=== PATIENT | female | born 1960 | race Caucasian/White ===

== ENCOUNTER → 2020-03-11 15:14 | Outpatient (CLI) | payer BC, SELFPAY ==
--- NOTE | ~2020-03-11 | MM_ITS ---
EXAMINATION: MM screening shari BI w gary HISTORY: Screening mammogram TECHNIQUE: Craniocaudal and mediolateral oblique 3-D tomosynthesis images were obtained and synthetic 2-D images were generated. CAD analysis was submitted and interpreted. COMPARISON: 01/13/2016, 11/05/2014 bilateral digital screening mammogram examinations BREAST PARENCHYMAL COMPOSITION: There are scattered areas of fibroglandular density. FINDINGS: There is diminished size of both breasts consistent with interval bilateral breast reductio n surgery. Benign fat necrosis calcifications are noted on the right. There is no evidence of suspici ous mass, calcification, or architectural distortion to suggest malignancy in either breast. There persaud s been no suspicious interval change. IMPRESSION: 1. No mammographic evidence of malignancy. 2. Recommend routine screening mammography in one year. BI-RADS Category 2: Benign finding(s). ... Reviewed, dictated and finalized at location A.
== END ==
PROVIDERS: PCP Family Medicine; Visit Provider Family Medicine
DX: Z12.31 Encounter for screening mammogram for malignant neoplasm of breast (principal)
CPT/HCPCS: 77063; 77067

== ENCOUNTER 2021-08-28 10:07 | Outpatient (CLI) | payer BC, SELFPAY ==
--- NOTE | ~2021-08-28 | DEXA_ITS ---
Bone Density Report Name: RONAN SALINAS Age: 60 Sex: Female Ethnicity: White Date of : 1960 Indication: postmenopausal; screening for osteoporosis; hysterectomy; Referring Provider: Catherine Gupta Study: Bone densitometry was performed. Exam Date: August 28, 2021 Accession number: [id number] Bone Density: Region BMD T-score Z-score Classification AP Spine (L1-L4) 0.920 -1.2 0.3 Osteopenia Femoral Neck (Left) 0.812 -0.3 1.0 Normal Total Hip (Left) 1.113 1.4 2.4 Normal Femoral Neck (Right) 0.856 0.1 1.4 Normal Total Hip (Right) 1.017 0.6 1.6 Normal Total Hip Mean 1.065 1.0 2.0 Normal World Health Organization criteria for BMD impression classify patients as: Normal (T-score at or above -1.0), Osteopenia (T-score between -1.0 and -2.5), or Osteoporosis (T-score at or below -2.5). 10-year Fracture Risk(1): Major Osteoporotic Fracture 5.6% Hip Fracture 0.2% Reported Risk Factors: [place] (), Neck BMD=0.812, BMI=44.6 (1) FRAX(R) Version 3.08. Fracture probability calculated for an untreated patient. Fracture probability may be lower if the patient has received treatment. Previous Exams: Region Exam Age BMD T-score BMD Change BMD Change Date g/cm2 vs Baseline vs Previous AP Spine(L1-L4) 08/28/2021 60 0.920 -1.2 -0.029* -0.076* 12/22/2012 52 0.996 -0.5 0.047* 0.014 08/24/2008 47 0.982 -0.6 0.033 0.033 11/12/2006 45 0.950 -0.9 Total Hip(Left) 08/28/2021 60 1.113 1.4 0.079* 0.048* 12/22/2012 52 1.065 1.0 0.031* 0.006 08/24/2008 47 1.059 1.0 0.024 0.024 11/12/2006 45 1.034 0.8 Total Hip(Right) 08/28/2021 60 1.017 0.6 0.003 0.038* 12/22/2012 52 0.979 0.3 -0.035* -0.021 08/24/2008 47 1.000 0.5 -0.014 -0.014 11/12/2006 45 1.014 0.6 *Denotes significance at 95% confidence level, LSC for AP Spine = 0.022 g/cm2, LSC for Total Hip = 0.027 g/cm2 Clinical Information Provided by Patient: Has the following medical conditions: Hysterectomy Patient maximum height was 62 Menopause Age: 40 Drinks caffeinated beverages Onset of menses at age 16 Number of children 4 Impression: The patient has low bone mass, based on the Total Spine T-score. The patient has an estimated ten-year risk of hip
--- NOTE | ~2021-08-28 | MM_ITS ---
EXAMINATION: MM screening shari BI w gary HISTORY: Screening TECHNIQUE: Craniocaudal and mediolateral oblique 3-D tomosynthesis images were obtained and synthetic 2-D images were generated. CAD analysis was submitted and interpreted. COMPARISON: Comparison to multiple prior studies sequentially, with oldest reviewed study dated 11/08. BREAST PARENCHYMAL COMPOSITION: There are scattered areas of fibroglandular density. FINDINGS: The right breast is stable without evidence for malignancy. There are benign right breast c alcifications. There is a mass in the upper outer quadrant of the left breast. IMPRESSION: 1. Left breast mass, upper outer quadrant. 2. Additional mammographic views and possible breast ultrasound are recommended. BI-RADS Category 0: Incomplete: Needs additional imaging evaluation. Reviewed, dictated and finalized at location A. IMPRESSION: 1. Left breast mass, upper outer quadrant. 2. Additional mammographic views and possible breast ultrasound are recommended . BI-RADS Category 0: Incomplete: Needs additional imaging evaluation.
== END 2021-08-28 10:08 ==
PROVIDERS: PCP Family Medicine; Visit Provider Family Medicine
DX: Z12.31 Encounter for screening mammogram for malignant neoplasm of breast (principal); Z78.0 Asymptomatic menopausal state; R92.8 Other abnormal and inconclusive findings on diagnostic imaging of breast; M85.88 Other specified disorders of bone density and structure, other site
CPT/HCPCS: 77063; 77067; 77080

== ENCOUNTER 2021-09-10 08:17 | Outpatient (CLI) | payer BC, SELFPAY ==
--- NOTE | ~2021-09-10 | MMUS_ITS ---
EXAMINATION: MM diagnostic shari LT w gary, US breast LT limited HISTORY: Upper outer quadrant left breast mass reported on 08/28/2021 screening mammogram TECHNIQUE: Additional 3-D tomosynthesis images of the left breast were performed and synthetic 2-D im ages were generated. CAD analysis was submitted and interpreted. High resolution upper outer quadrant left breast ultrasound was performed. COMPARISON: bilateral screening mammogram FINDINGS: MAMMOGRAPHIC FINDINGS: Approximately 9 mm comma-shaped mass in the posterior upper outer left breast is confirmed. ULTRASOUND: 2:00 12 cm from nipple: Irregular heterogeneous hypoechoic solid lesion with at least 2 nipple-like p rojections is noted. Lesion measures up to 6 x 10.5 x 7.1 mm dimension. There is a nearby vessel. The re is minimal if any shadowing. The lesion is suspicious, given the irregular margins IMPRESSION: 1. Suspicious 10.5 mm irregular mass at 2:00 12 cm from nipple 2. Ultrasound-guided biopsy is recommended BI-RADS category 4, suspicious findings. Dr. Plummer telephoned the report and ultrasound guided biopsy recommendation on 09/10/20[address] Carmona Reviewed, dictated and finalized at location A. IMPRESSION: 1. Suspicious 10.5 mm irregular mass at 2:00 12 cm from nipple 2. Ultrasound-guided biopsy is recommended BI-RADS category 4, suspicious findings. Dr. Plummer telephoned the report and ultrasound guided biopsy recommendation on at [address] Carmona
== END 2021-09-10 08:18 ==
LOC: MICIMG 08:21
PROVIDERS: PCP Family Medicine; Visit Provider Family Medicine
DX: R92.8 Other abnormal and inconclusive findings on diagnostic imaging of breast (principal)
CPT/HCPCS: 76642; 77061; 77065; G0279

== ENCOUNTER 2021-09-19 08:58 | Outpatient (CLI) | payer BC, SELFPAY ==
--- NOTE | ~2021-09-19 | MMUS_ITS ---
MM post biopsy invasive LT, US breast biopsy LT w image EXAMINATION: US GUIDED NEEDLE BIOPSY WITH VAC UUM ASSISTANCE DATE: 09/19/2021 10:54 CDT INDICATION: Left breast mass seen on prior examination. Ultrasound-guided core biopsy is requested t o evaluate for malignancy. TECHNIQUE AND FINDINGS: The risks and potential benefits of the procedure were discussed with the patient, and written inform ed consent was obtained. After sterile preparation of the left breast, 1% lidocaine was utilized for local anesthesia. 1% lidocaine with epinephrine was used for deep anesthesia. A 10G vacuum-assisted biopsy gun needle was advanced through to the outer edge of the region of inter est from a lateral approach utilizing sonographic guidance. A total of 4 tissue core samples were ob tained through the lesion. An Inrad tissue marker clip was then placed at the biopsy site. Hemostasi s was achieved. The patient tolerated procedure well and there was no evidence of immediate complication. The patien t was given verbal instructions partly is from the department. Left breast mammograms to document ti ssue marker clip placement. The tissue samples were submitted to surgical pathology for histologic an alysis. IMPRESSION: 1. Successful ultrasound-guided vacuum-assisted biopsy of left breast mass with tissue marker placem ent. Please refer to pathology report for histologic analysis. Reviewed, dictated and finalized at location A. IMPRESSION: 1. Successful ultrasound-guided vacuum-assisted biopsy of left breast mass wit h tissue marker placement. Please refer to pathology report for histologic anal ysis.
== END 2021-09-19 08:59 | disposition home or self-care (01) ==
PROVIDERS: PCP Family Medicine; Visit Provider Family Medicine
DX: R92.8 Other abnormal and inconclusive findings on diagnostic imaging of breast (principal)
CPT/HCPCS: 19083; 88305; A4648

== ENCOUNTER 2022-01-16 01:24 | Day surgery (SDC) | payer BC, SELFPAY ==
[2022-01-05 14:11] VITALS: BMI 44.9
[2022-01-16 09:25] VITALS: BP 144/79; PULSE 65; RESP 18; TEMP 36.1; O2SAT 99; BMI 46.1
[2022-01-16] MEDS: LACTATED RINGERS 1,000 ML 150 ML IV CONT (09:50)
--- NOTE | 2022-01-16 10:08 | WPDANESEPPF ---
Anes - Initial Pre Proc Eval Procedure: Operation Date: 01/16/22 10:30 Proposed Procedures p Screening Colonoscopy - Jose Francisco Cox MD Date/Time: 01/16/22 10:08 Surgeon: Jose Francisco Cox MD Pre Op Diagnosis: neoplasm screening Patient Data Age: 61 Gender: F Height: 1.52 m Weight: 107.2 kg Last Vital Signs Temp 97.0 F L 01/16/22 09:25 Pulse 65 01/16/22 09:25 Resp 18 01/16/22 09:25 BP 144/79 H 01/16/22 09:25 Pulse Ox 99 01/16/22 09:25 O2 Del Method Room Air 01/16/22 09:25 Allergies Allergy/AdvReac Type Severity Reaction Status Date / Time No Known Allergies Allergy Verified 01/16/22 09:40 Home Medications Medication Instructions Recorded Confirmed Type sertraline 50 mg tablet See Rx Instructions .Route 04/10/21 01/16/22 Rx .COMPLEX #90 tabs atorvastatin 20 mg tablet See Rx Instructions .Route 12/12/21 01/16/22 Rx .COMPLEX #90 tabs lisinopril 20 See Rx Instructions .Route 12/23/21 01/16/22 Rx mg-hydrochlorothiazide 12.5 mg .COMPLEX #90 tabs tablet Patient hx anesthesia problems: none Family hx anesthesia problems: none Results Review: All pre-operative results and documents have been reviewed as part of the pre-operative evaluation. [facility] Past Medical History Medical History Depression Gallbladder disorder Hyperlipemia Hypertension Right knee pain Undifferentiated connective tissue disease Surgical History Surgical History Bilateral carpal tunnel syndrome 2007 Encounter for cholecystectomy 2016 H/O lateral meniscus repair of right knee 2011 History of bilateral breast reduction surgery 2017 History of partial hysterectomy 2000 Family History Family History Father Hypertension Family history of diabetes mellitus in first degree relative Family history of coronary artery disease Acute myocardial infarction Mother Hypertension Family history of liver disease Family history of diabetes mellitus in first degree relative Family history of heart disease in male family member before age 55 Family history of arthritis Family history of coronary artery disease Family history of kidney disease Sibling Hypertension Family history of diabetes mellitus in first degree relative Other Cerebrovascular accident Diabetes mellitus Family history of gout Family history of malignant neoplasm Social History Social History Smoking status: Never smoker Second hand tobacco smoke exposure: No Alcohol intake: never Substance use: never Substance use type: does not use Living arrangements: with family Additional living arrangements comments: 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 Gender identity (if verbalized by the patient): Female Spiritual care concerns: No Agree to blood products: Yes Anes - Eval Final PreProcedure Day of Procedure 01/16/22 10:08 Patient weight: morbidly obese Heart: regular rate and rhythm Lungs: clear to auscultation Airway: Mallampati scale class II Neurological: alert and oriented Last oral intake: >/= 8 hours ASA classification: III Emergent: no Anesthetic plan: proceed Anesthesia type and monitoring: general GIVS and standard monitoring Results Review: All pre-operative results and documents have been reviewed as part of the pre-operative evaluation. Informed Consent: The patient's anesthetic plan and its attendant risks and benefits were discussed with the patient/family/POA. Questions were solicited and answers provided to the satisfaction of the patient/family/POA.
--- NOTE | 2022-01-16 10:16 | PM.HPGS ---
History of Present Illness History of Present Illness Consent: Risks, benefits, and alternatives have been discussed and questions answered. Patient agrees to proceed with procedure. Chief complaint: neoplasm screening Narrative: Ashlie Salazar is a 61 year old female here for screening colonoscopy, last one 10 years ago Review of Systems Constitutional: Constitutional: Denies headache(s) and Denies weakness Eyes: Eyes: Denies blurry vision ENT: Reports Normal hearing present, Denies headache(s) and Denies neck pain Cardiovascular: Cardiovascular: Denies chest pain and Denies dyspnea Respiratory: Respiratory: Denies dyspnea Gastrointestinal: Gastrointestinal: Reports no additional gastrointestinal complaints Genitourinary: Genitourinary: Denies dysuria Musculoskeletal: Musculoskeletal: Denies neck pain Integumentary/Breasts: Skin/Breast: Denies dry skin Neurologic: Reports Normal hearing present, Denies headache(s) and Denies weakness Psychiatric: Psychiatric: Denies anxiety Endocrine: Endocrine: Denies change in body appearance Hematologic/Lymphatic: Hematologic/Lymphatic: Denies easy bleeding Allergic/Immunologic: Allergic/Immunologic: Denies urticaria PMFSH Past Medical History Medical History Depression Gallbladder disorder Hyperlipemia Hypertension Right knee pain Undifferentiated connective tissue disease Surgical History Surgical History Bilateral carpal tunnel syndrome 2007 Encounter for cholecystectomy 2016 H/O lateral meniscus repair of right knee 2011 History of bilateral breast reduction surgery 2017 History of partial hysterectomy 2001 Family History Family History Father Hypertension Family history of diabetes mellitus in first degree relative Family history of coronary artery disease Acute myocardial infarction Mother Hypertension Family history of liver disease Family history of diabetes mellitus in first degree relative Family history of heart disease in male family member before age 55 Family history of arthritis Family history of coronary artery disease Family history of kidney disease Sibling Hypertension Family history of diabetes mellitus in first degree relative Other Cerebrovascular accident Diabetes mellitus Family history of gout Family history of malignant neoplasm Social History Social History Smoking status: Never smoker Second hand tobacco smoke exposure: No Alcohol intake: never Substance use: never Substance use type: does not use Living arrangements: with family Additional living arrangements comments: Additional occupation/education comments: police specialist Gender identity (if verbalized by the patient): Female Spiritual care concerns: No Agree to blood products: Yes Meds Home Medications and Allergies Home Medications Medication Instructions Recorded Confirmed Type sertraline 50 mg tablet See Rx Instructions .Route 04/10/21 01/16/22 Rx .COMPLEX #90 tabs atorvastatin 20 mg tablet See Rx Instructions .Route 12/12/21 01/16/22 Rx .COMPLEX #90 tabs lisinopril 20 See Rx Instructions .Route 12/23/21 01/16/22 Rx mg-hydrochlorothiazide 12.5 mg .COMPLEX #90 tabs tablet Allergies Allergy/AdvReac Type Severity Reaction Status Date / Time No Known Allergies Allergy Verified 01/16/22 09:40 Vital Signs Vital Signs - 24 hr 01/16/22 09:25 Temperature 97.0 F L Pulse Rate 65 Respiratory Rate 18 Blood Pressure 144/79 H Pulse Oximetry 99 Oxygen Delivery Room Air Exam Const: General: comfortable and no acute distress HENMT: General nose exam: Normal nares present Eyes: General: appearance normal, both eyes and all related structures Neck:
[2022-01-16 10:36] VITALS: BP 124/74; PULSE 66; RESP 20; O2SAT 98
[2022-01-16 10:46] VITALS: BP 123/73; PULSE 63; RESP 20; O2SAT 98
[2022-01-16 10:56] VITALS: BP 128/81; PULSE 59; RESP 19; O2SAT 98
== END 2022-01-16 11:03 | disposition home or self-care (01) ==
PROVIDERS: PCP Family Medicine; Visit Provider Internal Medicine Gastroenterology
PROC: 0DJD8ZZ Inspection of Lower Intestinal Tract, Via Natural or Artificial Opening Endoscopic (ICD-10-PCS; CPT 45378; principal; 2022-01-16 10:30)
DX: Z12.11 Encounter for screening for malignant neoplasm of colon (principal); K57.30 Diverticulosis of large intestine without perforation or abscess without bleeding; K82.9 Disease of gallbladder, unspecified; K64.8 Other hemorrhoids; F32.A Depression, unspecified; E78.5 Hyperlipidemia, unspecified; I10 Essential (primary) hypertension; E66.01 Morbid (severe) obesity due to excess calories; Z68.42 Body mass index [BMI] 45.0-49.9, adult
CPT/HCPCS: 45378; J2704; J7120

== ENCOUNTER 2025-03-09 11:00 | Outpatient (CLI) | payer BC, SELFPAY ==
--- NOTE | 2025-03-09 11:15 | ECG_ITS ---
Test Date: 2025-03-09 11:21:49 Measurements Intervals [place] Rate: 70 P: 37 AL: 141 QRS: 32 QRSD: 95 T: 36 QT: 389 QTc: 422 Interpretive Statements SINUS RHYTHM BASELINE ARTIFACT- I, II, AVR NORMAL ECG No previous ECG available for comparison Electronically Signed On 03-09-2025 15:19:50 CDT by Melvin Garrett D.O.
[2025-03-09 11:46] LABS: Hematocrit 41.7 % (37.0-47.0); Hemoglobin 13.6 g/dL (12.0-15.0); Immature Granulocyte Percent A 0.3 % (0-0.5); Lymphocytes Absolute Auto 1.96 K/mm3 (0.9-3.2); Mean Corpuscular HGB Conc 32.6 g/dl (32-36); Mean Corpuscular Hemoglobin 30.7 pg (26-34); Mean Corpuscular Volume 94.1 fl (80-100); Nucleated Red Blood Cells Absolute Auto 0.000 K/mm3 (0.0-0.012); Nucleated Red Blood Cells Perc 0.0 % (0.0-0.2); Platelet Count Result 213 k/mm3 (150-375); Red Blood Count 4.43 M/mm3 (4.2-5.4); White Blood Count 5.9 K/mm3 (4.5-10.0)
[2025-03-09 11:55] LABS: Add Urine Microscopic? YES; Appearance Urine Clear (Clear); Glucose Urine UA Negative (Negative); Leukocyte Esterase Ur Trace LEU/UL (Negative); Nitrate Urine Negative (Negative); Non Pathogenic Casts 0-2; Specific Grav Ur 1.021 (1.001-1.035)
[2025-03-09 12:05] LABS: Anion Gap 5 mmol/L (4-12); Blood Urea Nitrogen 23 mg/dL (7-17); Calcium 9.0 mg/dL (8.4-10.2); Carbon Dioxide 31 mmol/L (22-30); Chloride 102 mmol/L (98-107); Estimated Glomerular Filt Rate > 60; Glucose 93 mg/dL (65-110); Potassium 4.2 mmol/L (3.4-5.0); Sodium 138 mmol/L (137-145)
== END 2025-03-09 11:01 | disposition home or self-care (01) ==
LOC: ANHLAB 11:01
PROVIDERS: PCP Nurse Practitioner Family; Visit Provider Orthopaedic Surgery
DX: E78.2 Mixed hyperlipidemia (principal); I10 Essential (primary) hypertension; R53.83 Other fatigue
CPT/HCPCS: 36415; 80048; 81001; 85025; 93005